=== PATIENT | male | born 1975 | race Caucasian/White ===

== ENCOUNTER 2024-06-10 15:03 | Emergency (ER) | payer MEDICAID ==
[~2024-06-10] VITALS: Ht 170.2 cm; Wt 97.1 kg
[~2024-06-10 15:03] MED LIST: LISI-953 PO; METF-346 PO
[2024-06-10 15:11] VITALS: BP 195/119; PULSE 108; RESP 18; TEMP 98.2; O2SAT 95
[2024-06-10 16:05] LABS: BASOPHILS # (AUTO) 0.1 K/uL (0.00-0.22); BASOPHILS % (AUTO) 1.1 % (0.0-2.0); EOSINOPHILS # (AUTO) 0.1 K/uL (0-0.4); EOSINOPHILS % (AUTO) 1.5 % (0.0-4.0); HEMATOCRIT 44.7 % (36-52); HEMOGLOBIN 15.3 g/dL (12.0-18.0); LYMPHOCYTES % (AUTO) 23.6 % (20.5-51.1); MEAN CORPUSCULAR HEMOGLOBIN 30 pg (27-31); MEAN CORPUSCULAR HGB CONC 34 g/dL (33-37); MEAN CORPUSCULAR VOLUME 86.7 fL (80-94); MONOCYTES % (AUTO) 11.6 % (1.7-9.3); NEUTROPHILS # (AUTO) 5.3 K/uL (1.8-7.7); NEUTROPHILS % (AUTO) 62.2 % (42.2-75.2); PLATELET COUNT (AUTO) 248 K/uL (140-450); RED BLOOD CELL COUNT(AUTO) 5.15 MIL/uL (4.20-6.10); RED CELL DISTRIBUTION WIDTH 14.3 % (11.6-13.7); WHITE BLOOD COUNT (AUTO) 8.5 K/uL (4.8-10.8)
[2024-06-10] MEDS: NACL 0.9% 1,000 ML IV ONE (16:19)
[2024-06-10 16:22] LABS: ANION GAP 13.5 (8-16); CALCIUM 8.5 mg/dL (8.5-10.1); CARBON DIOXIDE 25.3 mmol/L (21-32); POTASSIUM 3.8 mmol/L (3.5-5.1)
[2024-06-10 16:33] LABS: ALANINE AMINOTRANSFERASE 32 U/L (12-78); ALBUMIN 3.4 g/dL (3.4-5.0); ALKALINE PHOSPHATASE 118 U/L (50-136); ASPARTATE AMINOTRANSFERASE 18 U/L (15-37); BILIRUBIN,DIRECT 0.1 mg/dL (0.0-0.3); TOTAL BILIRUBIN 0.6 mg/dL (0.0-1.0)
[2024-06-10 16:41] LABS: D-DIMER < 100 ng/ml (0-400)
[2024-06-10 16:47] LABS: INR 0.99 (0.8-1.2); PARTIAL THROMBOPLASTIN TIME 25.4 secs (22-35.6); PROTHROMBIN TIME 10.4 secs (10.8-13.4)
[2024-06-10 16:55] LABS: AMPHETAMINE, URINE NEGATIVE ng/ml (NEG <=1000); BARBITURATE, URINE NEGATIVE ng/ml (NEG <=200); BENZODIAZEPINE, URINE NEGATIVE ng/mL (NEG <=200); CANNABINOID, URINE NEGATIVE ng/mL (NEG <=50); COCAINE, URINE NEGATIVE ng/mL (NEG <=300); OPIATE, URINE NEGATIVE ng/mL (NEG <=2000); PHENCYCLIDINE SCREEN,URINE NEGATIVE ng/mL (NEG <=25)
[2024-06-10] MEDS ORDERED: HYDR12.51 PO (17:11)
[2024-06-10] MEDS: CLONIDINE HYDROCHLORIDE 0.1 MG TAB PO ONE (18:51)
[2024-06-10] MEDS ORDERED: CRUSHER, PILL MC ONE (18:53)
[2024-06-10] MEDS: carvediloL 6.25 MG TAB PO ONE (18:54)
[2024-06-10] MEDS: FUROSEMIDE 20 MG/2 ML VIAL IVP ONE (18:55)
[2024-06-10] MEDS: ACETAMINOPHEN 325 MG TAB PO ONE (19:07)
[2024-06-10] MEDS ORDERED: LISI20TA29 PO (19:28)
[2024-06-10] MEDS ORDERED: INSU100I7 SUBQ (19:28)
[2024-06-10] MEDS ORDERED: CARV12.52 PO (19:28)
[2024-06-10] MEDS ORDERED: GLIP10TA12 PO (19:28)
[2024-06-10] MEDS ORDERED: ATOR40TA40 PO (19:28)
[2024-06-10] MEDS ORDERED: METF-352 PO (19:28)
[2024-06-10] MEDS ORDERED: ASPI-1856 PO (19:28)
[2024-06-10] MEDS ORDERED: INSU100I34 SUBQ (19:28)
[2024-06-10 19:45] VITALS: BP 180/127; PULSE 103; RESP 16; O2SAT 96
== END 2024-06-10 19:45 | disposition left against medical advice (07) ==
LOC: MED 15:03
DX: R07.9 Chest pain, unspecified (principal); R06.02 Shortness of breath; R05.9 Cough, unspecified; R06.01 Orthopnea; E78.5 Hyperlipidemia, unspecified; I10 Essential (primary) hypertension; S93.402A Sprain of unspecified ligament of left ankle, initial encounter; E11.65 Type 2 diabetes mellitus with hyperglycemia; Z79.82 Long term (current) use of aspirin; Z79.84 Long term (current) use of oral hypoglycemic drugs; Z79.4 Long term (current) use of insulin; Z79.899 Other long term (current) drug therapy; Z88.5 Allergy status to narcotic agent; X58.XXXA Exposure to other specified factors, initial encounter; Y93.89 Activity, other specified; Y92.89 Other specified places as the place of occurrence of the external cause; Y99.8 Other external cause status
CPT/HCPCS: 36415; 71045; 73610; 80048; 80076; 80305; 82948; 83880; 84484; 85025; 85379; 85610; 85730; 93005; 96361; 96374; 99285; J1940; J7030; Q0092